=== PATIENT | female | born 1990 | race African-American/Black ===

== ENCOUNTER 2016-05-31 14:58 | Emergency (ER) | payer OTHER ==
[~2016-05-31] VITALS: Ht 160 cm; Wt 71.3 kg
[~2016-05-31 14:58] MED LIST: GUAI-47 PO; IBUP-1542 PO; NO MEDS TAKEN; PEN500 PO
[2016-05-31 15:09] VITALS: Ht 160 cm; Wt 71.3 kg
[2016-05-31] MEDS ORDERED: HC30CR25 TOP (15:29)
[2016-05-31] MEDS ORDERED: PRED20TA PO (15:29)
--- NOTE | 2016-05-31 15:34 | ERD ---
ER Documentation Chief Complaint Date/Time DATE: 05/31/16 TIME: 15:32 Chief Complaint RASH X 2 DAYS HPI Patient is a 18-year-old female with no medical problems who presents with a rash. She has had a rash to her upper back for the past few months that has been coming and going. However last night it was worse and she stated that it felt "swollen". She said that it is very itchy. She has had no treatment as of yet. She goes to a local clinic for her care. ROS All systems reviewed and are negative except as per history of present illness. Medications Home Meds Active Scripts Hydrocortisone* Topical (Hydrocortisone* Topical) 2.5%-28.3 Gm Cream..g., 1 APPLIC TOP BID, #1 TUB Prov:EMILIA FLORES MD 05/31/16 Prednisone* (Prednisone*) 20 Mg Tab, 60 MG PO DAILY for 5 Days, TAB Prov:EMILIA FLORES MD 05/31/16 Penicillin V Potassium* (Penicillin V K*) 500 Mg Tab, 500 MG PO QID for 10 Days , TAB Prov:REJI BLANCAS MD 02/22/15 Guaifenesin-Dextromethorphan* (Mucinex* DM) 600-30 Mg Tabsr, 1 TAB PO Q12 for 7 Days, TAB Prov:REJI BLANCAS MD 02/22/15 Ibuprofen* (Motrin*) 600 Mg Tab, 600 MG PO Q6, #20 TAB Prov:REJI BLANCAS MD 02/22/15 Reported Medications [None] No Conflict Check 05/14/11 [No Meds Taken] No Conflict Check 08/17/10 Allergies Allergies: Coded Allergies: No Known Drug Allergy (Verified Allergy, Mild, 05/14/11) PMhx/Soc History of Surgery: No Anesthesia Reaction: No Hx Neurological Disorder: No Hx Respiratory Disorders: No Hx Cardiac Disorders: No Hx Psychiatric Problems: No Hx Miscellaneous Medical Probl: No (no medical hx) Hx Alcohol Use: Yes (once per week) Hx Substance Use: No Hx Tobacco Use: Yes (1x per week) FmHx Family History: diabetes Physical Exam Vitals Vital Signs Date Time Temp Pulse Resp B/P Pulse Ox O2 Delivery O2 Flow Rate FiO2 05/31/16 15:09 98.1 77 20 140/78 99 Physical Exam Const: No acute distress Head: Atraumatic Eyes: Normal Conjunctiva ENT: Normal External Ears, Nose and Mouth. Neck: Full range of motion..~ No meningismus. Resp: Clear to auscultation bilaterally Cardio: Regular rate and rhythm, no murmurs Abd: Soft, non tender, non distended. Normal bowel sounds Skin: Dry skin with flaking to the upper back bilaterally, no signs of vesicles, no signs of cellulitis or infection, no abscess Back: No midline or flank tenderness Ext: No cyanosis, or edema Neur: Awake and alert Psych: Normal Mood and Affect Procedures/MDM Patient is a 26-year-old female who presents with rash to her upper back bilaterally. This appears to be an acute dermatitis. I do not think this is cellulitis or abscess. There is no petechiae or purpura. Patient will be treated with oral prednisone and topical hydrocortisone. I do believe that she would benefit from following up with her rush seater however. Since this has been coming and going for months if this treatment does not work I recommended that she get an outpatient biopsy. The patient could return for any worsening symptoms. She is otherwise well-appearing with stable vital signs. Departure Diagnosis: Primary Impression: Dermatitis Additional Impression: Rash Condition: Fair Patient Instructions: Self-Care for Skin Rashes, Dermatitis, Non-Specific Referrals: Machine Etcher Additional Instructions: SPECIALIST: YOU HAVE A MEDICAL CONDITION WHICH REQUIRES YOU TO SEE A SPECIALIST WITHIN THE NEXT 1-2 DAYS. PLEASE FOLLOW UP WITH YOUR PRIMARY PHYSICIAN FOR REFFERAL.IF YOU DO NOT HAVE A PRIMARY CARE PHYSICIAN AND/OR YOU CAN NOT AFFORD TO SEE A PHYSICIAN THE FOLLOWING RESOURCES HAVE BEEN SUPPLIED TO YOU. IT IS YOUR RESPONSIBILITY TO BE SEEN BY THE SPECIALIST EMILIA FLORES MD May 31, 2016 15:34
== END 2016-05-31 15:36 | disposition home or self-care (01) ==
LOC: E/R 14:58
DX: L30.9 Dermatitis, unspecified (principal); Z72.0 Tobacco use
CPT/HCPCS: 99284